=== PATIENT | female | born 1965 | race Caucasian/White ===

== ENCOUNTER 2021-07-27 20:04 | Emergency (ER) | payer BC, MEDICAID ==
[~2021-07-27] VITALS: Ht 167.6 cm; Wt 6.5 kg
[~2021-07-27 20:04] MED LIST: CHOL400T14 PO; KRIL500C PO; MAGN500C4 PO; PREN1TAB79 PO
[2021-07-27 20:09] VITALS: BP 111/68
[2021-07-27] MEDS ORDERED: predniSONE 20 mg tablet PO ONE (20:40)
[2021-07-27] MEDS ORDERED: diphenhydrAMINE 25mg capsule PO ONE (20:40)
--- NOTE | 2021-07-27 20:46 | NUR ---
po med given benadrly refused. pt took her own medication
== END 2021-07-27 21:15 | disposition home or self-care (01) ==
LOC: ER 20:06
DX: T78.40XA Allergy, unspecified, initial encounter (principal); E78.00 Pure hypercholesterolemia, unspecified; Z72.89 Other problems related to lifestyle; Z79.899 Other long term (current) drug therapy; Y92.89 Other specified places as the place of occurrence of the external cause
CPT/HCPCS: 99283; J7512